=== PATIENT | female | born 1980 | race Caucasian/White ===

== ENCOUNTER 2016-10-07 16:54 | Emergency (ER) | payer OTHER ==
[2016-10-07 17:02] VITALS: RESP 20; TEMP 98.3
--- NOTE | 2016-10-07 17:23 | ED ---
Arrhythmia/Palpitations HPI - General Chief Complaint: Arrhythmia/Palpitations Stated Complaint: Irregular Heartbeat Time Seen by Provider: 10/07/16 17:11 Source: patient Mode of arrival: EMS Limitations: no limitations - History of Present Illness Initial Comments: This 36-year-old white female presents with a complaint of palpitations. She states that this came on just earlier today. She has a history of anxiety reactions and states that she thought she was having another anxiety reaction.. She denies any known previous cardiac arrhythmias. She denies any known previous history of SVT her any cardiac conditions. Her called EMS tonight and they did an EKG which shows evidence of SVT. Her heart rate apparently was up to 200 at one point. They had her bear down and she converted onset the second attempt. She denies having any lightheadedness, chest pain, or shortness of breath. She's been doing well medically otherwise. No other complaints or modifying factors. She feels back to normal at this time. Review of Systems ROS Statement: Those systems with pertinent positive or pertinent negative responses have been documented in the HPI. ROS Other: All systems not noted in ROS Statement are negative. Past Medical History Past Medical History: No Reported History History of Any Multi-Drug Resistant Organisms: None Reported Past Surgical History: No Surgical Hx Reported Past Psychological History: Anxiety Smoking Status: Never smoker Past Alcohol Use History: None Reported Past Drug Use History: None Reported General Exam - General Exam Comments Initial Comments: GENERAL: The patient is well nourished and well hydrated. VITAL SIGNS: Heart rate, blood pressure, respiratory rate reviewed as recorded in nurse's notes. EYES: Pupils are round and reactive. Extraocular movements are intact. No conjunctival / lid redness or swelling. ENT: No external evidence of injury, swelling, or ecchymosis. Airway is patent. Throat is clear. NECK: Nontender. No swelling or evidence of injury. No subcutaneous emphysema. Trachea is midline. No thyroid mass. HEART: Slightly tachycardic at a heart rate of 110. Good peripheral pulses. LUNGS/CHEST: Breath sounds clear and equal bilaterally. No rales, rhonchi, or wheezes. No ecchymosis, subcutaneous emphysema, or tenderness. ABDOMEN: Abdomen soft without tenderness. No palpable masses or organomegaly. No peritoneal signs. No abdominal wall swelling or ecchymosis. EXTREMITIES: No extremity tenderness. Normal muscle tone and function. No thoracolumbar tenderness. NEUROLOGIC: Sensation is grossly intact. Cranial nerve exam reveals face is symmetrical, tongue is midline, speech is clear. SKIN: No abrasions or ecchymosis is noted. No induration or masses noted. PSYCHIATRIC: Alert and oriented. Appropriate behavior and judgment. Limitations: no limitations Course Vital Signs 10/07/16 16:56 Temperature 98.3 F Pulse Rate 126 H Respiratory 20 Rate Blood Pressure 103/67 O2 Sat by Pulse 2 L Oximetry Medical Decision Making - Medical Decision Making The patient was seen and examined. EKG was reviewed from EMS which is show evidence of SVT had a heart rate of 212. The repeat EKG here after she converted does show a sinus tachycardia at a rate of 116. There is no acute ST- T wave changes identified. There is mild artifact. The [place] interval is 136, QRS duration is 80, and QTC intervals 472. She appears quite well clinically. Her heart rate is still slightly elevated but this is felt due to her underlying anxiety. It is felt that she is stable for discharge and close follow-up with cardiology. Her diagnosis was discussed with her and ultimately detail. Return parameters are discussed. She leaves in no identifiable distress. Disposition Clinical Impression: Supraventricular tachycardia, Palpitations Disposition: HOME SELF-CARE Condition: Good Instructions: Supraventricular Tachycardia (ED) Referrals: Nonstaff,Physician [Primary Care Provider] - 1-2 days Karl Hull MD [STAFF PHYSICIAN] - 10/10/16 Time of Disposition: 17:22
[2016-10-07 17:34] VITALS: BP 103/56; PULSE 77
== END 2016-10-07 17:32 | disposition home or self-care (01) ==
LOC: EC 16:54
DX: I47.1 Supraventricular tachycardia (principal)
CPT/HCPCS: 93005; 99285

== ENCOUNTER → 2017-09-02 | Outpatient (CLI) | payer OTHER ==
[2017-09-02 18:28] LABS: Anion Gap 12 mmol/L; Blood Urea Nitrogen 11 mg/dL (7-17); Carbon Dioxide 26 mmol/L (22-30); Chloride 102 mmol/L (98-107); Glucose 79 mg/dL (74-99); Magnesium 1.9 mg/dL (1.6-2.3); Potassium 4.3 mmol/L (3.5-5.1); Sodium 140 mmol/L (137-145)
[2017-09-02 18:43] LABS: T4, Free (Free Thyroxine) 0.73 ng/dL (0.78-2.19)
== END | disposition home or self-care (01) ==
LOC: LABWHC1 17:34
PROVIDERS: ATTEND Internal Medicine Interventional Cardiology
DX: E03.9 Hypothyroidism, unspecified (principal); I47.0 Re-entry ventricular arrhythmia
CPT/HCPCS: 36415; 80048; 83735; 84439; 84443

== ENCOUNTER 2017-11-11 03:13 | Observation (INO) | payer OTHER ==
[2017-11-11 03:35] LABS: Anisocytosis Slight; Basophils # (A) 0.1 k/uL (0-0.2); Basophils % (A) 0 %; Eosinophils # (A) 0.2 k/uL (0-0.7); Eosinophils % (A) 2 %; HCT 33.4 % (34.0-46.0); HGB 10.7 gm/dL (11.4-16.0); Hypochromasia Slight; Lymphocytes % (A) 27 %; MCH 23.7 pg (25.0-35.0); MCHC 32.1 g/dL (31.0-37.0); MCV 73.7 fL (80.0-100.0); Mean Platelet Volume 9.6; Microcytosis Moderate; Monocytes # (A) 0.5 k/uL (0-1.0); Monocytes % (A) 4 %; Neutrophils # (A) 7.1 k/uL (1.3-7.7); Neutrophils % (A) 64 %; Platelet Count 291 k/uL (150-450); RBC 4.53 m/uL (3.80-5.40); RDW 16.7 % (11.5-15.5)
--- NOTE | 2017-11-11 03:42 | ED ---
General Adult HPI - General Chief complaint: Syncope Stated complaint: Syncope Time Seen by Provider: 11/11/17 03:20 Source: patient, RN notes reviewed, old records reviewed Mode of arrival: EMS Limitations: no limitations - History of Present Illness Initial comments: This is a 29 female the ER for evaluation. She presents today for evaluation regarding syncopal event significant 2. Patient has history of cardiac disease ventricular arrhythmia, patient had an got up to the bathroom today, she passed out once a little bit was walking back to the bedroom. Patient denies chest pain or shortness of breath, states patient was very diaphoretic and out of it when he found her. Again she denies feeling presyncopal currently, denies any chest pain no shortness of breath no abdominal pain. She has been taking all medications as prescribed - Related Data Allergies Allergy/AdvReac Type Severity Reaction Status Date / Time No Known Allergies Allergy Verified 11/11/17 03:33 Review of Systems ROS Statement: Those systems with pertinent positive or pertinent negative responses have been documented in the HPI. ROS Other: All systems not noted in ROS Statement are negative. Past Medical History Past Medical History: Hypertension, Supraventricular Tachycardia (SVT), Syncope , Thyroid Disorder History of Any Multi-Drug Resistant Organisms: None Reported Past Surgical History: No Surgical Hx Reported Past Psychological History: Anxiety Smoking Status: Never smoker Past Alcohol Use History: None Reported Past Drug Use History: None Reported General Exam Limitations: no limitations General appearance: alert, in no apparent distress Head exam: Present: atraumatic, normocephalic, normal inspection Eye exam: Present: normal appearance, PERRL, EOMI. Absent: scleral icterus, conjunctival injection, periorbital swelling ENT exam: Present: normal exam, mucous membranes moist Neck exam: Present: normal inspection. Absent: tenderness, meningismus, lymphadenopathy Respiratory exam: Present: normal lung sounds bilaterally. Absent: respiratory distress, wheezes, rales, rhonchi, stridor Cardiovascular Exam: Present: regular rate, normal rhythm, normal heart sounds. Absent: systolic murmur, diastolic murmur, rubs, gallop, clicks GI/Abdominal exam: Present: soft, normal bowel sounds. Absent: distended, tenderness, guarding, rebound, rigid Extremities exam: Present: normal inspection, full ROM, normal capillary refill. Absent: tenderness, pedal edema, joint swelling, calf tenderness Back exam: Present: normal inspection Neurological exam: Present: alert, oriented X3, CN II-XII intact Psychiatric exam: Present: normal affect, normal mood Skin exam: Present: warm, dry, intact, normal color. Absent: rash Course Vital Signs 11/11/17 11/11/17 11/11/17 03:15 04:06 04:35 Temperature 97.4 F L Pulse Rate 54 L 76 56 L Respiratory 16 19 16 Rate Blood Pressure 101/51 91/50 120/56 O2 Sat by Pulse 100 96 96 Oximetry 11/11/17 05:44 Temperature Pulse Rate 75 Respiratory 17 Rate Blood Pressure 107/58 O2 Sat by Pulse 98 Oximetry - Reevaluation(s) Reevaluation #1: 11/11/17 04:03 Patient does have positive history of ventricular ectopy with bigeminy. Patient currently PVCs multiple here in the emergency room EKG Findings - EKG Comments: EKG Findings:: EKG shows sinus recurred 54, IL 150, QRS 80, QTC 464 Medical Decision Making - Medical Decision Making 29 female the ER for evasive syncopal event likely arrhythmia, ventricular arrhythmia related. Patient be admitted for cardiology evaluation - Lab Data Result diagrams: 11/11/17 03:23 11/11/17 03:23 Lab Results 11/11/17 11/11/17 11/11/17 Range/Units 03:23 03:23 03:23 WBC 11.0 H (3.8-10.6) k/uL RBC 4.53 (3.80-5.40) m/uL Hgb 10.7 L (11.4-16.0) gm/dL Hct 33.4 L (34.0-46.0) % MCV 73.7 L (80.0-100.0) fL MCH 23.7 L (25.0-35.0) pg MCHC 32.1 (31.0-37.0) g/dL RDW 16.7 H (11.5-15.5) % Plt Count 291 (150-450) k/uL Neutrophils % 64 % Lymphocytes % 27 % Monocytes % 4 % Eosinophils % 2 % Basophils % 0 % Neutrophils # 7.1 (1.3-7.7) k/uL Lymphocytes # 3.0 (1.0-4.8) k/uL Monocytes # 0.5 (0-1.0) k/uL Eosinophils # 0.2 (0-0.7) k/uL Basophils # 0.1 (0-0.2) k/uL Hypochromasia Slight Anisocytosis Slight Microcytosis Moderate PT (9.0-12.0) sec INR (<1.2) APTT (22.0-30.0) sec D-Dimer (<0.60) mg/L FEU Sodium 139 (137-145) mmol/L Potassium 4.0 (3.5-5.1) mmol/L Chloride 106 (98-107) mmol/L Carbon Dioxide 21 L (22-30) mmol/L Anion Gap 12 mmol/L BUN 14 (7-17) mg/dL Creatinine 0.90 (0.52-1.04) mg/dL Est GFR (CKD-EPI)AfAm >90 (>60 ml/min/1.73 sqM) Est GFR (CKD-EPI)NonAf 82 (>60 ml/min/1.73 sqM) Glucose 101 H (74-99) mg/dL Calcium 8.9 (8.4-10.2) mg/dL Phosphorus 5.2 H (2.5-4.5) mg/dL Magnesium 2.1 (1.6-2.3) mg/dL Total Bilirubin 0.3 (0.2-1.3) mg/dL AST 19 (14-36) U/L ALT 31 (9-52) U/L Alkaline Phosphatase 86 (38-126) U/L Total Creatine Kinase 90 (30-135) U/L CK-MB (CK-2) 0.5 (0.0-2.4) ng/mL CK-MB (CK-2) Rel Index 0.6 Troponin I <0.012 (0.000-0.034) ng/mL Total Protein 6.8 (6.3-8.2) g/dL Albumin 3.8 (3.5-5.0) g/dL TSH 9.110 H (0.465-4.680) mIU/L 11/11/17 Range/Units 03:23 WBC (3.8-10.6) k/uL RBC (3.80-5.40) m/uL Hgb (11.4-16.0) gm/dL Hct (34.0-46.0) % MCV (80.0-100.0) fL MCH (25.0-35.0) pg MCHC (31.0-37.0) g/dL RDW (11.5-15.5) % Plt Count (150-450) k/uL Neutrophils % % Lymphocytes % % Monocytes % % Eosinophils % % Basophils % % Neutrophils # (1.3-7.7) k/uL Lymphocytes # (1.0-4.8) k/uL Monocytes # (0-1.0) k/uL Eosinophils # (0-0.7) k/uL Basophils # (0-0.2) k/uL Hypochromasia Anisocytosis Microcytosis PT 10.8 (9.0-12.0) sec INR 1.1 (<1.2) APTT 20.1 L (22.0-30.0) sec D-Dimer 6.86 H (<0.60) mg/L FEU Sodium (137-145) mmol/L Potassium (3.5-5.1) mmol/L Chloride (98-107) mmol/L Carbon Dioxide (22-30) mmol/L Anion Gap mmol/L BUN (7-17) mg/dL Creatinine (0.52-1.04) mg/dL Est GFR (CKD-EPI)AfAm (>60 ml/min/1.73 sqM) Est GFR (CKD-EPI)NonAf (>60 ml/min/1.73 sqM) Glucose (74-99) mg/dL Calcium (8.4-10.2) mg/dL Phosphorus (2.5-4.5) mg/dL Magnesium (1.6-2.3) mg/dL Total Bilirubin (0.2-1.3) mg/dL AST (14-36) U/L ALT (9-52) U/L Alkaline Phosphatase (38-126) U/L Total Creatine Kinase (30-135) U/L CK-MB (CK-2) (0.0-2.4) ng/mL CK-MB (CK-2) Rel Index Troponin I (0.000-0.034) ng/mL Total Protein (6.3-8.2) g/dL Albumin (3.5-5.0) g/dL TSH (0.465-4.680) mIU/L - Radiology Data Radiology results: report reviewed (CTA chest negative for PE), image reviewed Critical Care Time Critical Care Time: Yes Total Critical Care Time: 31 Disposition Clinical Impression: Vasovagal syncope, Syncope, Arrhythmia, PVC (premature ventricular contraction) Disposition: ADMITTED IP TO THIS [facility] Condition: Fair Is patient prescribed a controlled substance at d/c from ED?: No
[2017-11-11 03:49] LABS: Creatine Kinase 90 U/L (30-135)
[2017-11-11 03:51] LABS: ALT 31 U/L (9-52); AST 19 U/L (14-36); Albumin 3.8 g/dL (3.5-5.0); Alkaline Phosphatase 86 U/L (38-126); Anion Gap 12 mmol/L; Blood Urea Nitrogen 14 mg/dL (7-17); Calcium 8.9 mg/dL (8.4-10.2); Carbon Dioxide 21 mmol/L (22-30); Chloride 106 mmol/L (98-107); Glucose 101 mg/dL (74-99); Magnesium 2.1 mg/dL (1.6-2.3); Phosphorus 5.2 mg/dL (2.5-4.5); Sodium 139 mmol/L (137-145); Total Bilirubin 0.3 mg/dL (0.2-1.3); Total Protein 6.8 g/dL (6.3-8.2)
[2017-11-11 04:02] LABS: Creatine Kinase MB 0.5 ng/mL (0.0-2.4); INR 1.1 (<1.2); Prothrombin Time 10.8 sec (9.0-12.0); Troponin I <0.012 ng/mL (0.000-0.034)
[2017-11-11] MEDS ORDERED: NITROGLYCERIN SL TABS 0.4 MG TAB SUBLINGUAL PRN (04:05)
[2017-11-11 04:08] LABS: D-Dimer 6.86 mg/L FEU (<0.60); Partial Thromboplastin Time 20.1 sec (22.0-30.0)
--- NOTE | 2017-11-11 04:42 | XR ---
EXAM: XR Chest, 2 Views CLINICAL HISTORY: ITS.REASON XR Reason: Weakness TECHNIQUE: Frontal and lateral views of the chest. COMPARISON: FINDINGS: Lungs: No dense consolidation. Slight prominence of the central lung markings, nonspecific. Pleural space: No pleural effusion. No pneumothorax. Heart: Unremarkable. No cardiomegaly. Mediastinum: Unremarkable. Bones/joints: Unremarkable. Tubes, lines and devices: Overlying chest leads obscure portion of the chest Other findings: IMPRESSION: No dense consolidation or effusion. Slight prominence of the central vasculature, nonspecific.
--- NOTE | 2017-11-11 05:29 | CT ---
EXAM: CT Angiography Chest With Intravenous Contrast CLINICAL HISTORY: ITS.REASON CT Reason: pe TECHNIQUE: Axial computed tomographic angiography images of the chest with intravenous contrast using pulmonary embolism protocol. CTDI is 171.8 mGy and DLP is 355.4 mGy-cm. This CT exam was performed using one or more of the following dose reduction techniques: automated exposure control, adjustment of the mA and/or kV according to patient size, and/or use of iterative reconstruction technique. MIP reconstructed images were created and reviewed. COMPARISON: FINDINGS: Pulmonary arteries: No filling defects in the pulmonary arteries to suggest thrombus. Aorta: No acute findings. No thoracic aortic aneurysm. Lungs: Minimal paraseptal emphysematous change in the right lung apex. No dense consolidation. Pleural space: Unremarkable. No significant effusion. No pneumothorax. Heart: Unremarkable. No cardiomegaly. No significant pericardial effusion. No evidence of RV dysfunction. Mediastinum: Small hiatal hernia. Bones/joints: Mild degenerative changes in the thoracic spine No acute fracture. No dislocation. Soft tissues: Unremarkable. Lymph nodes: Unremarkable. No enlarged lymph nodes. IMPRESSION: Negative for pulmonary embolism. Small hiatal hernia
[2017-11-11 06:07] LABS: Appearance,Urine Clear (Clear); Bacteria,Urine Occasional /hpf; Bilirubin,Urine Negative (Negative); Blood,Urine Trace (Negative); Budding Yeast,Urine Occasional /hpf; Color,Urine Light Yellow; Glucose,Urine (UA) Negative (Negative); Ketones,Urine Negative (Negative); Leukocyte Esterase,Urine Negative (Negative); Nitrite,Urine Negative (Negative); PH, Urine 6.5 (5.0-8.0); Protein,Urine Negative (Negative); RBC,Urine 3 /hpf (0-5); Squamous Epithelial Cell,Urine 3 /hpf (0-4); Urobilinogen,Urine <2.0 mg/dL (<2.0); WBC,Urine 1 /hpf (0-5)
[2017-11-11 06:20] LABS: Specific Gravity,Urine 1.049 (1.001-1.035)
[2017-11-11 06:56] VITALS: RESP 18
[2017-11-11] MEDS ORDERED: METOPROLOL TARTRATE 50 MG TAB PO SCH (09:00)
[2017-11-11 09:06] VITALS: BP 111/56; PULSE 51; TEMP 98.2
--- NOTE | 2017-11-11 11:04 | P.DS ---
Providers Date of admission: 11/11/17 04:05 Attending physician: Jacob Mckenna Consults: 11/11/17 04:05 Consult Physician Urgent Consulting Provider: Dave Dukes Consult Reason/Comments: pvc Do you want consulting provider notified?: Yes Primary care physician: Estefany Ortega [facility] Course: Patient left AMA before I can evaluate the patient. Patient Condition at Discharge: Fair Plan - Discharge Summary Discharge Rx Participant: No New Discharge Prescriptions: No Action Levothyroxine Sodium [Tirosint] 50 mcg PO DAILY Verapamil HCl 40 mg PO TID Metoprolol Tartrate [Metoprolol Tartrate] 25 mg PO DAILY Sertraline [Zoloft] 50 mg PO DAILY Discharge Medication List Levothyroxine Sodium [Tirosint] 50 mcg PO DAILY 11/11/17 [History] Metoprolol Tartrate [Metoprolol Tartrate] 25 mg PO DAILY 11/11/17 [History] Sertraline [Zoloft] 50 mg PO DAILY 11/11/17 [History] Verapamil HCl 40 mg PO TID 11/11/17 [History] Follow up Appointment(s)/Referral(s): Estefany Ortega DO [Primary Care Provider] - 1-2 days Discharge Disposition: Left Against Medical Advice
--- NOTE | 2017-11-11 11:07 | P.HPIM ---
History of Present Illness Patient AMA Past Medical History Past Medical History: Pneumonia, Supraventricular Tachycardia (SVT), Thyroid Disorder Additional Past Medical History / Comment(s): SVT, hypothyroid, R carpal tunnel syndrome. History of Any Multi-Drug Resistant Organisms: None Reported Past Surgical History: No Surgical Hx Reported Past Anesthesia/Blood Transfusion Reactions: Unable to Obtain Additional Past Anesthesia/Blood Transfusion Reaction / Comment(s): Pt has never had general/spinal anesthesia. Smoking Status: Former smoker - Past Family History Father History Unknown: Yes Additional Family Medical History / Comment(s): Pt was raised by her stepfather/ mother Mother Family Medical History: No Reported History Additional Family Medical History / Comment(s): Mother is healthy and 62 yrs old. Medications and Allergies Home Medications Medication Instructions Recorded Confirmed Type Levothyroxine Sodium [Tirosint] 50 mcg PO DAILY 11/11/17 11/11/17 History Metoprolol Tartrate [Metoprolol 25 mg PO DAILY 11/11/17 11/11/17 History Tartrate] Sertraline [Zoloft] 50 mg PO DAILY 11/11/17 11/11/17 History Verapamil HCl 40 mg PO TID 11/11/17 11/11/17 History Allergies Allergy/AdvReac Type Severity Reaction Status Date / Time No Known Allergies Allergy Verified 11/11/17 03:33 Physical Exam Vitals: Vital Signs Temp Pulse Resp BP Pulse Ox 11/11/17 09:05 98.2 F 51 L 18 111/56 98 11/11/17 06:56 97.8 F 79 18 100/59 100 11/11/17 05:44 75 17 107/58 98 11/11/17 04:35 56 L 16 120/56 96 11/11/17 04:06 76 19 91/50 96 11/11/17 03:15 97.4 F L 54 L 16 101/51 100 Intake and Output 11/10/17 11/11/17 11/11/17 22:59 06:59 14:59 Other: Weight 81.647 kg Results CBC & Chem 7: 11/11/17 03:23 11/11/17 03:23 Labs: Abnormal Lab Results - Last 24 Hours (Table) 11/11/17 11/11/17 11/11/17 Range/Units 03:23 03:23 03:23 WBC 11.0 H (3.8-10.6) k/uL Hgb 10.7 L (11.4-16.0) gm/dL Hct 33.4 L (34.0-46.0) % MCV 73.7 L (80.0-100.0) fL MCH 23.7 L (25.0-35.0) pg RDW 16.7 H (11.5-15.5) % APTT 20.1 L (22.0-30.0) sec D-Dimer 6.86 H (<0.60) mg/L FEU Carbon Dioxide 21 L (22-30) mmol/L Glucose 101 H (74-99) mg/dL Phosphorus 5.2 H (2.5-4.5) mg/dL TSH 9.110 H (0.465-4.680) mIU/L Ur Specific [place] (1.001-1.035) Urine Blood (Negative) Urine Bacteria (None) /hpf Urine Yeast (Budding) (None) /hpf 11/11/17 Range/Units 05:56 WBC (3.8-10.6) k/uL Hgb (11.4-16.0) gm/dL Hct (34.0-46.0) % MCV (80.0-100.0) fL MCH (25.0-35.0) pg RDW (11.5-15.5) % APTT (22.0-30.0) sec D-Dimer (<0.60) mg/L FEU Carbon Dioxide (22-30) mmol/L Glucose (74-99) mg/dL Phosphorus (2.5-4.5) mg/dL TSH (0.465-4.680) mIU/L Ur Specific [place] 1.049 H (1.001-1.035) Urine Blood Trace H (Negative) Urine Bacteria Occasional H (None) /hpf Urine Yeast (Budding) Occasional H (None) /hpf Thrombosis Risk Factor Assmnt - Choose All That Apply Any of the Below Risk Factors Present?: Yes Each Factor Represents 1 point: Obesity (BMI >25) Other Risk Factors: No Other congenital or acquired thrombophilia - If yes, enter type in comment: No Thrombosis Risk Factor Assessment Total Risk Factor Score: 1 Thrombosis Risk Factor Assessment Level: Low Risk
[2017-11-12] MEDS ORDERED: LEVOTHYROXINE 50 MCG TAB PO SCH (06:30)
[2017-11-12] MEDS ORDERED: SERTRALINE 50 MG TAB PO SCH (09:00)
== END 2017-11-11 10:44 | disposition left against medical advice (07) ==
LOC: EC 03:13 → 3OBS 04:05
PROVIDERS: ADMIT Hospitalist; ATTEND Hospitalist
DX: R55 Syncope and collapse (principal); R61 Generalized hyperhidrosis; I49.3 Ventricular premature depolarization; I10 Essential (primary) hypertension; I47.1 Supraventricular tachycardia; E03.9 Hypothyroidism, unspecified; F41.9 Anxiety disorder, unspecified; G56.01 Carpal tunnel syndrome, right upper limb; E66.9 Obesity, unspecified; Z68.30 Body mass index [BMI] 30.0-30.9, adult; Z79.890 Hormone replacement therapy; Z79.899 Other long term (current) drug therapy; Z87.01 Personal history of pneumonia (recurrent); Z87.891 Personal history of nicotine dependence
CPT/HCPCS: 99291 ×2; 36415; 93005; 85379; 84439; 80053; 82550; 82553; 83735; 84100; 84443; 84484; 85025; 85610; 85730; 81001; 71046; 71275; G0378; Q9967